=== PATIENT | male | born 1945 | race Caucasian/White ===

== ENCOUNTER → 2018-04-01 | Outpatient (CLI) | payer OTHER ==
[~2018-04-01] MED LIST: LEXISCAN IV ONE
== END ==
LOC: RAD 08:15
PROVIDERS: ATTEND Internal Medicine Cardiovascular Disease
DX: M79.602 Pain in left arm (principal); R06.02 Shortness of breath
CPT/HCPCS: 78452; 93017; A4222; A9502; J2785